=== PATIENT | female | born 1965 | race Caucasian/White ===

== ENCOUNTER 2017-08-23 04:17 | Inpatient (IN) | payer MEDICAID ==
[2017-08-23] MEDS ORDERED: NS 1,000 ML IV ONE ×4 (04:22→06:56)
[2017-08-23] MEDS ORDERED: ASPIRIN 81 MG CHEWABLE TAB PO ONE (04:22)
[2017-08-23] MEDS ORDERED: LORazepam 2 MG/ML INJ IVP ONE ×2 (04:23→05:39)
--- NOTE | 2017-08-23 04:25 | EDPHY ---
H & P HPI/ROS: HPI CHIEF COMPLAINT: Chest pain, cocaine use HISTORY OF PRESENT ILLNESS: This patient 52-year-old female she presents emergency room after doing cocaine around 7:00 p.m. last night. Around 11:00 p.m. she developed pressure and pain in her chest. Associated shortness of breath. She states that she has a long history of cocaine use and previous cocaine induced MIs. She had 3 MIs. No stents. She is followed by Dr. Stevens. She presents to the emergency room after having ongoing chest pressure. It is now 430 in the morning she continue have shortness of breath and chest pressure. She denies hemoptysis. 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 Occasionally smokes tobacco occasional cocaine. Family History: Noncontributory ROS REVIEW OF SYSTEMS: A comprehensive 10 point review of systems is otherwise negative aside from elements mentioned in the history of present illness. Exam Constitutional appears well nontoxic,, somewhat anxious, triage nursing summary reviewed, vital signs reviewed, awake/alert. Eyes normal conjunctivae and sclera, EOMI, PERRLA. HENT normal inspection, atraumatic, moist mucus membranes, no epistaxis, neck supple/ no meningismus, no raccoon eyes. Respiratory clear to auscultation bilaterally, normal breath sounds, no respiratory distress, no wheezing. Cardiovascular tachycardic , regular rhythm, no murmur, no edema, distal pulses normal. Gastrointestinal soft, non-tender, no rebound, no guarding, normal bowel sounds, no distension, no pulsatile mass. Genitourinary no CVA tenderness. Musculoskeletal no midline vertebral tenderness, full range of motion, no calf swelling, no tenderness of extremities, no meningismus, good pulses, neurovascularly intact. Skin pink, warm, & dry, no rash, skin atraumatic. Neurologic awake, alert and oriented x 3, AAOx3, moves all 4 extremities equally, motor intact, sensory intact, CN II-XII intact, normal cerebellar, normal vision, normal speech. Psychiatric normal mood/affect. Heme/Lymph/Immune no lymphadenopathy. Differential diagnosis includes but is not limited to: Cocaine induced acute coronary syndrome, vaso spasm, cocaine induced cardiomyopathy, cocaine induced lung disease, crack cocaine, pulmonary hemorrhage, ACS, atypical chest pain, pneumothorax, pneumonia, pulmonary embolism, aortic dissection, congestive heart failure, tumor, musculoskeletal pain, esophageal pain, GERD, peptic ulcer disease, pancreatitis Medical Decision Making: Plan for this patient full youth nutritional monitor, IV establishment IV Ativan, full-dose aspirin, EKG, chest x-ray. Re-evaluate. IV fluid bolus. Rule out acute coronary syndrome with cocaine. Re-evaluation: EKG interpretation by me on record in [facility] system. Impression time of EKG 4:40 a.m., this is sinus tachycardia rate of 113 PVCs present. Left axis deviation present. Q-waves to the anterior leads V1 V2 V3 slight upsloping ST depression VB for V5 6. Slight ST depression lead 2. This is similar to previous EKG dated 08/25/2015. 0553: Patient noted be tachycardic feeling better after IV Ativan. Also blood work reviewed shows a very high white count. I did review her chest x-ray one view she has an infiltrate in the right lower lobe consistent with most likely a pneumonia. It is possible that this is crack cocaine lung disease. Crack lung additionally it is possible this is pulmonary hemorrhage. However given that it is an isolated right lower lobe most likely pneumonia given white count. She does endorse a cough. She does smoke her intermittently. Some productive sputum. No fever. Differential to consider is right lower lobe pneumonia, pulmonary hemorrhage from cocaine, crack lung, asymmetrical pulmonary edema given her white count will start Rocephin and Zithromax his community-acquired pneumonia. Blood cultures will be pulled. Leukocytosis noted. Additionally patient be admitted to the hospital for chest pain in the setting of an abnormal EKG in the setting of cocaine use. Cocaine induced chest pain. Awaiting troponin 0659: I did review this patient's recent discharge summary she had cocaine induced cardiomyopathy with an ejection fraction of 10%. It did increase to 30% . At this time I did go re-evaluate the patient currently her blood pressure is 81 /53. Heart rate 96. Pulse ox 95% room air. She is feeling better after Ativan. She did receive full-dose aspirin. Her troponin is still pending as a hemolyzed. CK and CK-MB noted. BNP noted. EKG repeat EKG: This EKG time 7:02 a.m., this is sinus rhythm rate of 91 Q- waves noted through the anterior leads. Slight ST depression to [address] elevation appreciated. 0734AM: This patient was noted to have decreasing blood pressure throughout her emergency room stay she is now 60/40. She has been moved to ER room 1 for central line placement it will be done under ultrasound guidance right IJ for vasopressor support. 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 Danny Arvizu who recommends dopamine vasopressor and ICU admission. She did have repeat EKG does not indicate an ST elevation [place]. But however most likely she is having cocaine induced cardiomyopathy cardiogenic shock from cocaine use. Troponin elevated. She is having now some chest pressure. Plan will be for resuscitation central line start vasopressor dopamine admit to ICU. Will update the hospitalist service. Critical Care: Total Critical Care Time Spent Managing this Patient: 65Minutes. This time was spent Exclusively with this patient. This Care was exclusive of procedures. The Organ System/life at risk was cardiac This Patient was in Critical Condition because cardiogenic shock 0749AM: The patient be admitted to the ICU on pressor dopamine. I did place a right IJ central line triple-lumen catheter under ultrasound guidance. Post chest x-ray was used to confirm line placement. No pneumothorax Procedure: Central line placement. Indication: Hypotension, cardiogenic shock Verbal informed consent was obtained, with the risks explained to include but not be limited to bleeding, infection, and collapsed lung. A timeout was observed and patients identity and correct procedure location confirmed. Full maximal sterile barrier technique was uses including cap, gown, sterile gloves, large sheet, hand washing and chlorhexidine prep. The area anesthetized with 1 % lidocaine. The right IJ under ultrasound guidance was punctured with a 19 gauge finder needle, then a triple-lumen catheter was placed using standard Seldinger technique. There were no complications. Blood return low pressure, dark blood. Patient tolerated procedure well. CXR results: No pneumothorax. Good line placement. X-ray was interpreted by myself. The procedure was performed by myself. 0750AM: I have updated the hospitalist about this patient's condition. Patient patient is in critical condition with severe hypotension from cardiogenic shock most likely due to cocaine cocaine induced cardiomyopathy. ED x-ray chest one view the chest x-ray that is time 855 p.m. shows cardiomegaly the right IJ central line is in appropriate position not too deep. Scoliosis present. And pulmonary edema is present throughout her lungs. No pneumothorax. Will hold off on IV fluids at this time. Patient be started on dopamine. Dr. Danny Arvizu with Cardiology to see and evaluate. Also patient be admitted to the ICU. 0807: Patient on dopamine at this time. Heart rate 119. Blood pressure 76/58. I did update the hospitalist service about this patient's condition. Patient go to the ICU. Cardiology consult. Echo pending. Source: Patient, EMS - Medical/Surgical History Hx Asthma: No Hx Chronic Respiratory Disease: No Hx Diabetes: No Hx Cardiac Disease: Yes Hx Renal Disease: No Hx Cirrhosis: No Hx Alcoholism: Yes Hx HIV/AIDS: No Hx Splenectomy or Spleen Trauma: No Other PMH: MIx2 secondary to cocaine use,angioplasty,ETOH, Tobacco use. - Social History Smoking Status: Current every day smoker Constitutional: Initial Vital Signs O2 Sat (%) 98 08/23/17 04:22 O2 Delivery Mode Nasal Cannula O2 (L/minute) 2 Allergies/Adverse Reactions: Opioids - Morphine Analogues Allergy (Verified 08/23/17 04:30) Home Medications: Medication Instructions Recorded Aspirin [Aspirin 81mg (*)] 81 mg PO DAILY #30 tab 08/30/15 Lisinopril [Zestril 5 mg (*)] 5 mg PO DAILY 08/23/17 Medical Decision Making - Data Points Laboratory Results: Laboratory Results 08/23/17 04:25 08/23/17 06:45 08/23/17 04:25 Troponin I Cancelled Procalcitonin 0.48 ng/mL H ng/mL (0.02-0.10) Medications Given: Acetaminophen (Tylenol) 650 mg PO Q4HRS PRN PRN Reason: Pain, Mild/Fever, Can Take PO Stop: 02/19/18 08:51 Last Admin: 08/23/17 20:10 Dose: 650 mg Sodium Chloride (Ns) 1,000 mls @ 150 mls/hr IV CONT FLY Stop: 02/19/18 12:59 Last Admin: 08/23/17 13:00 Dose: 1,000 mls Lorazepam (Ativan Injection) 0.5 - 1 mg IVP Q8HRS PRN PRN Reason: Anxiety, Unable to Take PO Stop: 02/19/18 08:51 Last Admin: 08/23/17 17:57 Dose: 0.5 mg Discontinued Medications Aspirin (Aspirin) 324 mg PO EDNOW ONE Stop: 08/23/17 04:23 Last Admin: 08/23/17 04:37 Dose: Not Given Fentanyl (Sublimaze) 25 mcg IVP ONCE ONE Stop: 08/23/17 08:11 Last Admin: 08/23/17 08:16 Dose: 25 mcg Sodium Chloride (Ns) 1,000 mls @ 0 mls/hr IV EDNOW ONE; Wide Open PRN Reason: Protocol Stop: 08/23/17 04:23 Last Admin: 08/23/17 04:35 Dose: 1,000 mls Azithromycin 500 mg/ Dextrose 255 mls @ 255 mls/hr IV ONCE ONE PRN Reason: Protocol Stop: 08/23/17 06:51 Last Admin: 08/23/17 06:42 Dose: 255 mls Ceftriaxone Sodium/Dextrose (Rocephin 1 Gm (Premix)) 50 mls @ 100 mls/hr IV EDNOW ONE PRN Reason: Protocol Stop: 08/23/17 06:21 Last Admin: 08/23/17 06:39 Dose: 50 mls Sodium Chloride (Ns) 1,000 mls @ 0 mls/hr IV ONCE ONE PRN Reason: Wide Open Stop: 08/23/17 05:56 Last Admin: 08/23/17 05:58 Dose: 1,000 mls Sodium Chloride (Ns) 1,000 mls @ 3,000 mls/hr IV ONCE ONE Stop: 08/23/17 07:10 Last Admin: 08/23/17 06:59 Dose: 1,000 mls Sodium Chloride (Ns) 1,000 mls @ 0 mls/hr IV ONCE ONE PRN Reason: Wide Open Stop: 08/23/17 06:57 Last Admin: 08/23/17 08:04 Dose: Not Given Dopamine HCl/Dextrose (Dopamine 1600 Mcg/Ml (Premix)) 250 mls @ 0 mls/hr IV EDNOW ONE; Titrate PRN Reason: Protocol Stop: 08/23/17 07:34 Last Admin: 08/23/17 07:55 Dose: 250 mls Heparin Sodium (Porcine) (Heparin 50 Units/Ml (Premix)) 500 mls @ 0 mls/hr IV EDNOW ONE PRN Reason: As Directed Stop: 08/23/17 07:34 Last Admin: 08/23/17 07:53 Dose: 500 mls Lorazepam (Ativan Injection) 1 mg IVP EDNOW ONE Stop: 08/23/17 04:24 Last Admin: 08/23/17 04:36 Dose: 1 mg Lorazepam (Ativan Injection) 1 mg IVP EDNOW ONE Stop: 08/23/17 05:40 Last Admin: 08/23/17 05:59 Dose: 1 mg Ondansetron HCl (Zofran) 4 mg IVP EDNOW ONE Stop: 08/23/17 07:06 Last Admin: 08/23/17 07:05 Dose: 4 mg Departure - Departure Disposition: [facility] Inpatient Acute Clinical Impression: Cocaine abuse, Tachycardia, Cardiogenic shock, Elevated troponin Pneumonia Qualifiers: Pneumonia type: due to unspecified organism Laterality: right Lung location: lower lobe of lung Qualified Code(s): J18.1 - Lobar pneumonia, unspecified organism Chest pain Qualifiers: Chest pain type: unspecified Qualified Code(s): R07.9 - Chest pain, unspecified Cardiomyopathy Qualifiers: Cardiomyopathy type: due to drug Qualified Code(s): I42.7 - Cardiomyopathy due to drug and external agent Condition: Fair
[2017-08-23 04:44] LABS: % IMMATURE GRANULYOCYTES 0.6 % (0.0-1.1); ABSOLUTE IMMATURE GRANULOCYTES 0.15 10^3/uL (0.00-0.10); ADD DIFF? NO; ADD MORPH? NO; ADD SCAN? NO; ATYPICAL LYMPHOCYTE FLAG 0 (0-99); FRAGMENT RBC FLAG 0 (0-99); HEMATOCRIT 47.2 % (38.0-47.0); HEMOGLOBIN 15.9 g/dL (12.6-16.3); LEFT SHIFT FLG 0 (0-99); LIPEMIA HEMOLYSIS FLAG 80 (0-99); MEAN CELL HEMOGLOBIN 31.9 pg (27.9-34.1); MEAN CELL HEMOGLOBIN CONCENTR. 33.7 g/dL (32.4-36.7); MEAN CELL VOLUME 94.8 fL (81.5-99.8); MEAN PLATELET VOLUME 11.1 fL (8.7-11.7); PLATELET CLUMPS FLAG 10 (0-99); PLATELET COUNT 385 10^3/uL (150-400); RED BLOOD CELL COUNT 4.98 10^6/uL (4.18-5.33); RED CELL DISTRIBUTION WIDTH 12.5 % (11.5-15.2)
--- NOTE | 2017-08-23 04:50 | CPEKG ---
Heart Rate: 113 RR Interval: 531 P-R Interval: 160 QRSD Interval: 92 QT Interval: 364 QTC Interval: 500 P [place]: 62 QRS [place]: -39 T Wave [place]: 6 EKG Severity - ABNORMAL ECG - EKG Impression: SINUS TACHYCARDIA EKG Impression: MULTIPLE VENTRICULAR PREMATURE COMPLEXES EKG Impression: PROBABLE LEFT ATRIAL ABNORMALITY EKG Impression: LEFT AXIS DEVIATION EKG Impression: CONSIDER ANTEROSEPTAL INFARCT EKG Impression: BORDERLINE PROLONGED QT INTERVAL Electronically Signed By: Sameer Schwartz 23-Aug-2017 08:01:59
[2017-08-23] MEDS ORDERED: AZITHROMYCIN IV 500 MG in D5W 250 ML IV ONE (05:52)
[2017-08-23 06:29] LABS: ALANINE AMINOTRANSFERASE 30 IU/L (9-52); ALBUMIN 3.8 g/dL (3.5-5.0); ALKALINE PHOSPHATASE 47 IU/L (38-126); ANION GAP 12 mEq/L (8-16); ASPARTATE AMINOTRANSFERASE 22 IU/L (14-46); BILIRUBIN,TOTAL 1.1 mg/dL (0.1-1.4); BILIRUBIN-CONJUGATED 0.2 mg/dL (0.0-0.5); BILIRUBIN-UNCONJUGATED 0.9 mg/dL (0.0-1.1); CALCIUM 8.6 mg/dL (8.5-10.4); CARBON DIOXIDE 15 mEq/l (22-31); CHLORIDE 111 mEq/L (97-110); CREATININE 0.8 mg/dL (0.6-1.0); GLOMERULAR FILTRATION RATE > 60; GLUCOSE 109 mg/dL (70-100); MAGNESIUM 1.6 mg/dL (1.6-2.3); SODIUM 138 mEq/L (134-144); TOTAL PROTEIN 6.2 g/dL (6.3-8.2)
[2017-08-23 06:44] LABS: CK-MB INTERPRETATION POSITIVE (NEGATIVE)
[2017-08-23] MEDS ORDERED: ONDANSETRON 4 MG/2 ML VIAL ONE (07:02)
--- NOTE | 2017-08-23 07:04 | CPEKG ---
Heart Rate: 91 RR Interval: 659 P-R Interval: 172 QRSD Interval: 80 QT Interval: 428 QTC Interval: 527 P [place]: 78 QRS [place]: 99 T Wave [place]: 7 EKG Severity - ABNORMAL ECG - EKG Impression: SINUS RHYTHM EKG Impression: PROBABLE LEFT ATRIAL ABNORMALITY EKG Impression: BORDERLINE RIGHT AXIS DEVIATION EKG Impression: CONSIDER ANTEROSEPTAL INFARCT EKG Impression: PROLONGED QT INTERVAL Electronically Signed By: Sameer Schwartz 23-Aug-2017 08:01:59
[2017-08-23] MEDS ORDERED: ONDANSETRON 4 MG/2 ML VIAL IVP ONE (07:05)
[2017-08-23 07:07] LABS: ALANINE AMINOTRANSFERASE 29 IU/L (9-52); ALBUMIN 3.5 g/dL (3.5-5.0); ALKALINE PHOSPHATASE 42 IU/L (38-126); ANION GAP 10 mEq/L (8-16); ASPARTATE AMINOTRANSFERASE 23 IU/L (14-46); CALCIUM 8.1 mg/dL (8.5-10.4); CARBON DIOXIDE 16 mEq/l (22-31); CHLORIDE 112 mEq/L (97-110); CREATININE 0.8 mg/dL (0.6-1.0); GLOMERULAR FILTRATION RATE > 60; GLUCOSE 111 mg/dL (70-100); SODIUM 138 mEq/L (134-144)
[2017-08-23] MEDS ORDERED: HEPARIN/DEXTROSE 500 ML IV ONE (07:33)
[2017-08-23] MEDS ORDERED: DOPamine/DEXTROSE/250 ML BAG IV ONE (07:33)
[2017-08-23] MEDS ORDERED: HEPARIN 10,000 UNIT/10 ML MDV ONE (07:35)
[2017-08-23] MEDS ORDERED: fentaNYL 100 MCG/2 ML INJ IVP ONE (08:10)
[2017-08-23] MEDS ORDERED: ONDANSETRON DISINTEGRATING 4 MG TAB PO PRN (08:52)
[2017-08-23] MEDS ORDERED: ONDANSETRON 4 MG/2 ML VIAL IVP PRN (08:52)
[2017-08-23] MEDS ORDERED: HYDROmorphONE/DILAUDID 1 MG/ML INJ IVP PRN (08:52)
[2017-08-23 08:53] LABS: COLOR YELLOW; LEUKOCYTE ESTERASE,URINE NEGATIVE (NEGATIVE); NITRITE,URINE NEGATIVE (NEGATIVE)
[2017-08-23 08:58] LABS: MUCUS TRACE /lpf (NONE-1+)
[2017-08-23 09:27] LABS: INR 1.27 (0.83-1.16); PROTIME(PATIENT) 15.9 SEC (12.0-15.0)
[2017-08-23 09:28] LABS: APTT 29.7 SEC (23.0-38.0)
--- NOTE | 2017-08-23 10:02 | GHP ---
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 She is followed by Dr. Ruby _, last saw him 4 months ago. It sounds like has not been of late taking her heart failure regimen o f beta alex, JORGE inhibitor and aspirin. She has been using cocaine with some regularity. I did n ot press her on exactly how much but she was using it last night. She presented this morning with ch est pain. Found to be hypotensive with systolic blood pressure as low as 60, now greater than 100 on dopamine. She notes a dry cough. No sputum, no fever, chills. No abdominal pain. No urgency, renae quency, dysuria. She has some chronic diarrhea secondary to diet that is unchanged. She does contin ue to smoke cigarettes. She does not drink alcohol. In the emergency department, she received IV fluids, dopamine, central line access and she reports fe eling much better in here. When I speak with her, she is alert and mentating. REVIEW OF SYSTEMS: Complete 10-point review of systems conducted and negative except as noted in the HPI. PAST MEDICAL HISTORY: 1. Cocaine-induced cardiomyopathy with [place] x3. She had a coronary angiogram in 2014 which showed nor mal coronary arteries. Her EF is reported to be 10%. Bedside estimate by the automatic equipment technician was mo re in the 30s. 2. History of intra-aortic balloon pump for cardiogenic shock. 3. Polysubstance abuse. ALLERGIES: Morphine and opioid analogs. HOME MEDICATIONS: Aspirin, bisoprolol, lisinopril, nicotine. SOCIAL HISTORY: Intermittent cocaine and tobacco use. She did have 5-1/2 months of sobriety. FAMILY HISTORY: Reviewed and unremarkable. PHYSICAL EXAMINATION: PRESENTING VITALS: Temp 36.7, blood pressure 118/61, pulse 55, breathing 17 t imes a minute, 91% on room air. GENERAL: No acute distress, lying flat. HEENT: Sclerae anicteric. Oropharynx is clear. Mucous membranes are moist. NECK: Supple. I cannot assess JVD, it is dark in the room, she is getting an echo while I examined her. LUNGS: Clear to auscultation anterolatera lly. HEART: S1, S2. Tachycardic, hyperdynamic. She is on dobutamine. ABDOMEN: Soft, nontender, nondistended. LOWER EXTREMITIES: Without edema. Calves nontender. SKIN: Without rash. NEUROLOGI C: Grossly nonfocal. LABS: White count is 24.5, with a left shift, hematocrit is 47, platelets are 385,000. Venous lacta te is elevated at 2.2. Sodium is 138, potassium 5, chloride 111, bicarb 15. Anion gap is normal. B UN is 20, creatinine is 0.8, mag is 1.6. Total bilirubin is 1.1. LFTs are normal. CK is 180. Trop onin is 2. BNP is 2430 which is high for her, in September of 2015, she was 553. Lipase is normal. UA is unremarkable. Tox screen is negative for cocaine, benzos and marijuana. EKG performed at 4:40 in the morning shows sinus tach at about 115 with left axis deviation. There i s a nonspecific interventricular conduction delay. There are some PVCs. There are no ST elevations. There is some ST-segment depression in V5, V6. Repeat EKG done a couple hours later shows sinus at 91 with left axis deviation. There are lateral prominent T-waves. Chest x-ray interpreted by me sh ows significant scoliosis. There appears to be some upper zone vascular redistribution. There does not appear to be an infiltrate. There is a right IJ in what appears to be the right atrium leads ove rlying the chest. I have discussed the case with Dr. Brian Schwartz as well as Dr. Juan Miguel Schwartz. ASSESSMENT AND PLAN: A 52-year-old female with a history of cocaine cardiomyopathy, presented with c ocaine use, chest pain, positive troponin and hypotension. 1. Hypotension. This is certainly suggestive of cardiogenic shock. Her leukocytosis is noted. She has responded well to dopamine. Her BNP is elevated for her, even though it is a relatively modest value for someone with her burden of cardiac disease. 2. When she arrives to the ICU, we will which will help us understand her hemodynamics a bit better. Notably, she is not in renal failure, she does not have cool, clamped extremities which would be suggestive of cardiac failure. Will follow. 3. Question sepsis. The patient has a leukocytosis, hypotension and tachycardia, although the tachy cardia was initiated after starting pressors. Chest x-ray does not have a clear pneumonia, although the radiologist has interpreted this as a right lower lobe pneumonia. I think it is reasonable to tr eat her for community-acquired pneumonia. Her urinalysis is unremarkable. Her belly is soft. There are no skin lesions. I will add a procalcitonin to further elucidate this. 4. Shock. Certainly it is important to differentiate the difference between cardiogenic shock and s epsis in this patient as sepsis would be treated with volume resuscitation, antibiotics, etc., and ca rdiogenic shock would be treated with diuresis. 5. Cocaine use. There are many strong indicators that this patient needs to stop using cocaine. 6. Right lower lobe pneumonia. Ceftriaxone and azithromycin initiated, we will continue those. She does coverage. 7. Chronic systolic heart failure. Again, sorting out the patient's hemodynamics are important. Fo r the time being, we will go ahead and follow up on her hemodynamics and proceed from there. 8. Prophylaxis. She is currently on a heparin drip for uncertain reasons. I suspect she would do w ell with heparin prophylaxis. 9. Disposition: Inpatient status. /[id number]/MODL
--- NOTE | 2017-08-23 10:41 | ECHO ---
[email or web address] [address] [address] Main: [phone] Fax: [email or web address] Echocardiogram Name: YASMEEN HART MR#: [id number] Study Date: 08/23/2017 Study Time: 08:34 AM Date of : 1965 Age: 52 year(s) Height: 165.1 cm (65 in.) Weight: 62.6 kg (138 lb.) BSA: 1.69 m2 Gender: Female Examination: Echo Indication: Cardiogenic shock Image Quality: Adequate Contrast: Requested by: Sameer Stevenson BP: 111 mmHg/58 mmHg Heart Rate: Rhythm: Sinus tachycardia Indication: Cardiogenic shock Procedure Staff Recreational Director: Marilyn Avendaño Reading Physician: Marshall Choi Requesting Provider: Conclusions: Moderately dilated left ventricle. Moderately reduced systolic LV function. The ejection fraction is estimated to be 30-35 %. Mild mitral valve regurgitation is present. Measurements: Chambers Valvular Assessment AV/MV Valvular Assessment TV/PV Normal Normal Normal Name Value Range Name Value Range Name Value Range Ao Salud (MM): 3.0 cm (2.2 cm-3.7 AV Vmax: 1.16 m/s (1 m/s-1.7 TR Vmax: 2.70 mm/s ( - ) cm) m/s) TR PGmax: 29 mmHg ( - ) IVSd (2D): 0.8 cm (0.6 cm-1.1 AV maxP mmHg ( - ) syst. PAP: 34 mmHg ( - ) cm) LVOT Vmax: 1.03 m/s (0.7 m/s-1.1 PV Vmax: 0.63 m/s (0.6 m/s-0.9 LVDd (2D): 5.2 cm (3.9 cm-5.3 m/s) m/s) cm) PV PGmax: 2 mmHg ( - ) LVDs (2D): 4.5 cm (2.1 cm-4 cm) LVPWd (2D): 0.9 cm ( - ) LVEF (BP): 33 % (>=55 %) EF Range: 30-35 % RVDd(2D): 3.9 cm (1.9 cm-3.8 cmmm) Continued Measurements: Chambers Valvular Assessment TV/PV Name Value Name Value LADs Lon.5 cm CVP (est.): 5 mmHg LA Area: 18.1 cm2 LA Volume: 67 ml Patient: YASMEEN HART Study Date: 08/23/2017 Page 1 of 2 08:34 AM LA Volume Index: 39.6 ml/m2 TAPSE: 1.7 cm Additional Vessels Name Value Ao Ascendin.6 cm Findings: Left Ventricle: Moderately dilated left ventricle. Moderately reduced systolic LV function. The ejection fraction is estimated to be 30-35 %. The basal anteroseptal, basal inferoseptal, basal inferior, mid anteroseptal, mid inferoseptal, mid inferior and apical septal wall segments are akinetic. All remaining scored wall segments are normal. Prominient false tendon noted in the LV apex.. Right Ventricle: Upper normal size right ventricle. Mildly reduced RV function. Left Atrium: The left atrium is mildly dilated. Right Atrium: The right atrium is mildly dilated. Mitral Valve: The mitral valve is normal in appearance. Mild mitral valve regurgitation is present. Prominient mitral papillary muscle noted.. Aortic Valve: The aortic valve is tri-leaflet. Trivial aortic valve regurgitation. Tricuspid Valve: The tricuspid valve is normal in appearance and function. Mild tricuspid regurgitation is present. Borderline elevated pumonary artery pressure. Pulmonic Valve: The pulmonic valve is normal in appearance and function. Mild pulmonic valve regurgitation is noted. Aorta: The aorta is normal. IVC: The IVC is normal sized. Pericardium: No pericardial effusion. (No Signature Object) Wall Motion Scores -1 - Not Scored, 0 - Unknown, 1 - Normal or hyperkinesia, 2 - Hypokinesia, 3 - Akinesia, 4 - Dyskinesia, 5 - Aneurysm Patient: YASMEEN HART Study Date: 08/23/2017 Page 2 of 2 08:34 AM [id number]
--- NOTE | 2017-08-23 12:44 | PDMN ---
Medical Necessity Medical necessity: est los>2mn for hypotension, likely cardiogenic shock, possible sepsis , and PNA; admit to ICU; comorbid cocaine induced cardiomyopathy, [place] X 3, chronic systolic heart failure; per H&P and order
[2017-08-23] MEDS: NS 1,000 ML IV SCH (13:00)
--- NOTE | 2017-08-23 14:24 | GCON ---
[f rep st] CONSULTATION CARDIOLOGY CONSULTATION CHIEF COMPLAINT: Chest pain x1 day. HPI: This is a 52-year-old female with history of nonischemic cardiomyopathy, who has a longstanding history of recurrent ethanol and cocaine abuse. The patient has been following up with Dr. Stevens he re in our clinic and actually had been doing quite well; however, the patient indicates that in the l ast 3 months, she has started using drugs again, especially cocaine use, and apparently used cocaine last night. This resulted in acute onset of chest pain, and the patient came to the emergency room, where evaluation showed ECG of normal sinus rhythm with nonspecific T wave changes. Troponins were e levated; however, patient's pain was rectified with administration of nitroglycerin, aspirin and Ativ an. Currently, the patient is resting quietly and denies any chest pain; however, her systolic blood pressure was low in the 60s to 70s on admission, and she has been treated with IV dopamine for the l ast 12 hours. Currently, the dopamine drip is at 8 mcg, and her blood pressure is 100 systolic. Aga in, she is resting quietly, denies any chest pain at this point in time. Her echocardiogram from s morning showed an ejection fraction of approximately 35% with global wall motion abnormality, with no significant valvular dysfunction. PAST MEDICAL HISTORY: Significant for cardiomyopathy. SOCIAL HISTORY: Significant for ethanol and cocaine drug use. MEDICATIONS: The patient indicates that she was on an JORGE inhibitor as well as asthma medications, b ut it is not clear if she has been taking any medications over the last few months. REVIEW OF SYSTEMS: The patient currently denies issue. No headache. No palpitations. No chest yuli n. No abdominal pain. No lower extremity pain. PHYSICAL EXAM: VITAL SIGNS: The patient is currently afebrile at 96, blood pressure is currently 10 0/70 with a heart rate of 88, respirations 12, saturation 95% on 2 liters nasal cannula. HEENT: Pup ils equal, round, reactive to light and accommodation. Extraocular muscles intact. CARDIOVASCULAR: Regular rate and rhythm. S1, S2. LUNGS: Clear to auscultation bilaterally. ABDOMEN: Soft, nonte nder. No guarding. EXTREMITIES: No clubbing, no cyanosis, no edema. NEUROLOGIC: Alert and orient ed x3. LABORATORY: Values currently show a sodium 138, potassium 5, chloride 111, CO2 15, BUN 20, creatinin e 0.8. Troponin of 2.0 with A CK-MB of 8.1. NT-BNP is 2400. Echocardiogram shows EF of 35% with global hypokinesis. ASSESSMENT AND PLAN: Chest pain. At this time, the patient's chest pain was most likely induced by her underlying cocaine use. I have spoken at length with the patient about her drug use, and she ind icates her willingness to go through a rehabilitation process. At this point, would suggest to wean her dopamine down in the intensive care unit setting and to be careful with IV fluid hydration given her reduced ejection fraction. Once the dopamine has been completely withdrawn, we could restart her angiotensin-converting enzyme inhibitor within 6 hours and her beta alex within 24 hours. The be ta laex will be slightly delayed secondary to her underlying cocaine use. Given the improvement c linically from a pain standpoint and the lack of dynamic electrocardiogram changes, we will continue with conservative medical therapy at this time. /[id number]/MODL
--- NOTE | 2017-08-23 15:45 | GCON ---
[f rep st] CONSULTATION PULMONARY/CRITICAL CARE CONSULTATION DATE OF CONSULTATION: 08/23/2017 REFERRING PHYSICIAN: Ciro Bahena MD REASON FOR REFERRAL: Evaluation and management of hypotension. HISTORY: The patient is a 52-year-old woman with a history of nonischemic cardiomyopathy and several myocardial infarctions attributed to cocaine use. She has been seen by Dr. Stevens, and had been doing well, with an ejection fraction that had increased from the low of 10% up to 55% several months ago. At her visit approximately [address] Stevens had told her that she could stop her beta alex. She apparently stopped that, but also stopped her lisinopril as well at the same time. About 3 months ago she started doing drugs again, including cocaine. She used cocaine last night at about 7 p.m. and had the acute onset of chest pain and shortness of breath at around 11 p.m. She presented to the emergency department with some nonspecific ST changes. She was given nitroglycerin, aspirin, and Ativan, and her chest pain had resolved. However, she was hypotensive with a systolic blood pressure in the 60s to 70s, requiring dopamine in order to maintain blood pressure. She denies dyspnea currently as well. She has had no nausea or vomiting. She does report some neck discomfort at the site of her IJ catheter. PAST MEDICAL HISTORY: 1. Cocaine-induced cardiomyopathy. 2. Polysubstance abuse. She was apparently not using cocaine for a while, but resumed a few months ago. MEDICATIONS: Aspirin, nicotine. ALLERGIES: Morphine. SOCIAL HISTORY: Intermittent cocaine and tobacco use. She has been smoking some marijuana as well. FAMILY HISTORY: Unremarkable. REVIEW OF SYSTEMS: 10-point review of systems adds nothing to the History of Present Illness. PHYSICAL EXAMINATION: GENERAL: The patient is awake, alert, and in no acute distress. VITAL SIGNS: Her blood pressure is 96/62 on dopamine at 8 mcg/kg/ min. Heart rate is 81. Oxygen saturations are 98% on 2 L. CVP is 14. HEENT: Normocephalic and atraumatic. No icterus. NECK: No JVD. Trachea is midline. CHEST: Clear to auscultation. CARDIAC: Regular rate and rhythm without murmur. ABDOMEN: Soft, nontender. Bowel sounds are present. EXTREMITIES: No clubbing, cyanosis, or edema. NEURO: Alert, oriented. No focal motor or sensory deficits. LABORATORY DATA: A chemistry group is remarkable only for a carbon dioxide level that is low at 16. A CK is 180, with 8% MB fraction. Troponin is 2.07. BNP is 2430. Procalcitonin is 0.48. Lactate is 1.1, down from 2.2 at admission. White blood count is 24.6 with a hemoglobin of 15.9. A chest x-ray shows a possible right lower lobe pneumonia and an appropriately placed right central line. Images reviewed. An echocardiogram shows an ejection fraction of 35%, global hypokinesis. Pulmonary artery systolic pressure is 34 mmHg. ASSESSMENT: 1. Hypotension. This is likely due to acute left ventricular systolic dysfunction related to cocaine abuse. I ordered an ICON monitor, which demonstrated fluid responsiveness. We have been able to start to decrease her dopamine rate. 2. Acute cocaine use. The patient is at fairly low risk for withdrawal given her intermittent use of cocaine. 3. History of anxiety. RECOMMENDATIONS: Dopamine will be weaned. If she develops hypotension, an ICON monitor will be rechecked and she will be given fluids if she remains fluid responsive. She will continue to be monitored in the ICU. She has been seen by Cardiology, and no interventions are planned at this point. Heparin can be stopped. /[id number]/MODL MTDD
[2017-08-23] MEDS: LORazepam 2 MG/ML INJ IVP PRN (17:57)
[2017-08-23] MEDS: ACETAMINOPHEN 325 MG TAB PO PRN (20:10)
[2017-08-24] MEDS: NS 1,000 ML IV SCH ×2 (02:14→09:04)
[2017-08-24] MEDS: ACETAMINOPHEN 325 MG TAB PO PRN (02:16)
[2017-08-24 05:45] LABS: % IMMATURE GRANULYOCYTES 0.4 % (0.0-1.1); ABSOLUTE IMMATURE GRANULOCYTES 0.05 10^3/uL (0.00-0.10); ADD DIFF? NO; ADD MORPH? NO; ADD SCAN? NO; ATYPICAL LYMPHOCYTE FLAG 0 (0-99); FRAGMENT RBC FLAG 0 (0-99); HEMATOCRIT 32.3 % (38.0-47.0); LEFT SHIFT FLG 0 (0-99); LIPEMIA HEMOLYSIS FLAG 90 (0-99); MEAN CELL HEMOGLOBIN 32.6 pg (27.9-34.1); MEAN CELL HEMOGLOBIN CONCENTR. 34.1 g/dL (32.4-36.7); MEAN CELL VOLUME 95.8 fL (81.5-99.8); MEAN PLATELET VOLUME 10.8 fL (8.7-11.7); PLATELET CLUMPS FLAG 0 (0-99); PLATELET COUNT 233 10^3/uL (150-400); RED BLOOD CELL COUNT 3.37 10^6/uL (4.18-5.33)
[2017-08-24 06:12] LABS: ANION GAP 7 mEq/L (8-16); CALCIUM 7.5 mg/dL (8.5-10.4); CARBON DIOXIDE 19 mEq/l (22-31); CHLORIDE 114 mEq/L (97-110); CREATININE 0.6 mg/dL (0.6-1.0); GLOMERULAR FILTRATION RATE > 60; GLUCOSE 88 mg/dL (70-100); POTASSIUM 3.4 mEq/L (3.5-5.2); SODIUM 140 mEq/L (134-144)
[2017-08-24] MEDS: AZITHROMYCIN 250 MG TAB PO SCH (08:51)
[2017-08-24] MEDS: cefTRIAXone 1 GM in D5W 50 ML IV SCH (08:51)
[2017-08-24] MEDS: ASPIRIN 81 MG CHEWABLE TAB PO SCH (08:52)
[2017-08-24] MEDS ORDERED: AZITHROMYCIN IV 500 MG in D5W 250 ML IV SCH (09:00)
--- NOTE | 2017-08-24 09:29 | PDCARPN ---
Cardiology Progress Note Assessment/Plan: Assessment/plan: 52 yo F with hx of NICMP related polysubstance abuse admitted with CP, hypotension, elevated WBC. LVEF dropped to 35% (had normalized with medical therapy). Utox positive for cocaine and THC. Troponin positive. Previous cath with no sig CAD. 1. Hypotension: cardiogenic plus possibly septic. On low dose dopa, being weaned. On broad spectrum abx. Once stable off dopa, restart lisinopril. Beta alex therapy would be indicated, but possibly problematic if she continues to use cocaine. This was discussed with her today. Has received significant volume rescusitation and may need lasix. 2. NICMP: per #1. Sees Dr. Stevens outpatient. 3. Polysubstance abuse: it is paramount that she remain abstinent from cocaine. Past ETOH. Also needs to quit cigarettes. 4. Elevated troponins: related to cocaine. 25 minutes spent in chart review and patient contact 08/24/17 09:32 Subjective: Brittany feels slightly SOB when talking. No angina. Has neck pain at right IJ site Reviewed/Discussed With: multidisciplinary team Objective: Vital Signs (8 Hrs) Temp Pulse Resp BP Pulse Ox 08/24/17 09:00 82 16 102/62 98 08/24/17 08:00 82 24 H 107/50 L 100 08/24/17 07:00 82 20 98/54 L 98 08/24/17 06:00 75 15 86/51 L 94 08/24/17 05:00 36.6 C 77 19 96/56 L 93 08/24/17 04:00 80 15 89/51 L 93 08/24/17 03:00 87 19 79/49 L 96 08/24/17 02:00 79 21 H 86/54 L 93 Intake/Output (24 Hrs) 08/23/17 08/24/17 08/25/17 05:59 05:59 05:59 Intake Total 6673.3 Output Total 1881 300 Balance 4792.3 -300 Intake: Oral (ml) 800 IV Intake (ml) 2282 IV Infused (ml) 3591.3 DOPamine/DEXTROSE 250 ml 217.7 @ Titrate IV CONT FLY Rx# :[id number] Heparin/Dextrose 500 ml @ 97.6 As Directed IV EDNOW ONE Rx#:[id number] Ns 1,000 ml @ 150 mls/hr 776 IV CONT FLY Rx#: [id number] Output: Urine (ml) 1881 300 Catheter 1481 300 Other: Weight 64.093 kg anxious RRR no m/r/g Rhonchi at both bases No edema CXR reviewed: peribronchial thickening Result Diagrams: 08/24/17 05:25 08/24/17 05:25 Cardiac Labs: Cardiac Lab Results (72 Hrs) 08/23/17 08/23/17 21:15 15:05 Troponin I 3.870 H 3.990 H EKG: Reviewed: SR, DILCIA, PVC. Subtle inferolateral STD Telemetry: NSR ICD10 Worksheet Patient Problems: Problems Problem Status Onset ROQUE (acute kidney injury) Acute NSTEMI (non-ST elevated myocardial infarction) Acute Cocaine abuse Acute Acute systolic congestive heart failure Acute Pneumonia Acute Tachycardia Acute Chest pain Acute Cardiogenic shock Acute Elevated troponin Acute Cardiomyopathy Acute
--- NOTE | 2017-08-24 09:42 | ASMTCMCOM ---
CM Note CM Note Notes: 52 year old female admitted for chest pain, hypotension, sepsis, RLL PNA. Patient has a hx of cocaine induced cardiomyopathy, polysubstance abuse, MD, EF=10%. CM to follow for discharge needs. Date Signed: 08/24/2017 09:42 AM Electronically Signed By:Deysi Soliz LCSW
[2017-08-24] MEDS ORDERED: PROTOCOL POTASSIUM 1 DOSE MISC PRN (10:48)
[2017-08-24] MEDS ORDERED: PROTOCOL MAGNESIUM 1 DOSE IV PRN (10:48)
[2017-08-24 12:10] LABS: MAGNESIUM 1.7 mg/dL (1.6-2.3); POTASSIUM 3.9 mEq/L (3.5-5.2)
[2017-08-24] MEDS ORDERED: POTASSIUM Cl (KCl) 50 ML IV ONE (13:17)
--- NOTE | 2017-08-24 14:00 | PDINTPN ---
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 EF down to 35% from 55% several months ago. Able to wean off DA this morning. BP acceptable, UO good. CI low at 2.0. BNP increased s/p IVF, now stopped. Cocaine abuse: Tobacco abuse Hypokalemia: Improved with replacement. Plan: Continue to hold IVF, encourage PO. Ambulate. D/C theodore MILLER. If doing well tomorrow can start lisinopril and Tx to PCU. 08/24/17 13:58 08/24/17 14:01 Subjective: Feels better, still some chest discomfort with deep breaths, as well as general myalgias. A bit walk when trying to walk, but did well. Denies dyspnea. Appetite returning. Objective: Vital Signs Temp Pulse Resp BP Pulse Ox 37.0 C 74 23 H 105/66 96 08/24/17 10:00 08/24/17 13:00 08/24/17 13:00 08/24/17 13:00 08/24/17 13:00 Laboratory Results 08/24/17 05:25 08/24/17 11:39 08/23/17 08/24/17 08/25/17 05:59 05:59 05:59 Intake Total 6673.3 Output Total 1881 600 Balance 4792.3 -600 PT 15.9 SEC (12.0-15.0) H 08/23/17 06:45 INR 1.27 (0.83-1.16) H 08/23/17 06:45 Laboratory Tests 08/23/17 08/23/17 08/24/17 15:05 21:15 05:25 Potassium 3.4 L Troponin I 3.990 H 3.870 H NT-Pro-B Natriuret Pep 51012 H Physical Exam - Physical Exam General Appearance: alert, no apparent distress EENT: normal ENT inspection Neck: normal inspection Respiratory: lungs clear, normal breath sounds Cardiac/Chest: regular rate, rhythm, No edema Abdomen: normal bowel sounds, non-tender Skin: normal color, warm/dry Extremities: normal inspection Neuro/Psych: alert, oriented x 3 ICD10 Worksheet Patient Problems: Problems Problem Status Onset Cardiogenic shock Acute Cardiomyopathy Acute Chest pain Acute Cocaine abuse Acute Elevated troponin Acute Pneumonia Acute Tachycardia Acute ROQUE (acute kidney injury) Acute Acute systolic congestive heart failure Acute NSTEMI (non-ST elevated myocardial infarction) Acute
[2017-08-24] MEDS ORDERED: POTASSIUM Cl (KCl) 100 ML IV ONE (14:45)
--- NOTE | 2017-08-24 14:53 | GPN ---
[f rep st] PROCEDURE NOTE DATE OF PROCEDURE: 08/24/2017 PROCEDURE PERFORMED: Flexible fiberoptic bronchoscopy. REASON FOR PROCEDURE: Respiratory failure with retained secretions. DESCRIPTION OF PROCEDURE: The risks and benefits of the procedure were explained to the patient's fa garo, who agreed to proceed. The entire procedure was performed in the intensive care unit with the patient under blood pressure, EKG, and oximetry monitoring. It was my assessment that there was no r isk of airborne infection from the procedure. After an appropriate time-out, the patient was given 5 cc of propofol, and 2 cc of 1% lidocaine was i nstilled into the patient's endotracheal tube. The bronchoscope was advanced through the endotrachea l tube, where I encountered thin mucopurulent secretions in the distal trachea, which were easily suc tioned. I then proceeded to the right airways, where there were scant secretions which were easily s uctioned. I then turned to the left-sided airways, where there was a moderate amount of thin mucopur ulent secretions which were easily suctioned. There was some extrinsic compression of the left lower lobe, but all airways were patent. There were no endobronchial abnormalities. No specimens were se nt. The patient tolerated the procedure well with good saturations throughout. There were no compli cations apparent at the end of the procedure. /[id number]/MODL
--- NOTE | 2017-08-24 15:11 | HOSPPROG ---
Hospitalist Progress Note Assessment/Plan: 52 yo F w NICM 2/2 cocaine use admitted w CP, hypotension and possible CAP CAP: day ceftriaxone azithro 5 day course alternative possibility is inhalation injury hypotension: NICOM demonstrated fluid responsiveness now off pressors NICM: ef had normalized but now 45% had been off JORGE BB had been dc'd 2/2 bradycardia restart lisinopril 08/25 if bp stable cocaine use: counselled cessation proph: [facility] dispo :inpt Subjective: case d/w dr decker. off pressors Objective: Vital Signs Temp Pulse Resp BP Pulse Ox 37.0 C 80 18 113/73 99 08/24/17 10:00 08/24/17 14:00 08/24/17 14:00 08/24/17 14:00 08/24/17 14:00 Laboratory Results 08/24/17 05:25 08/24/17 11:39 08/23/17 08/24/17 08/25/17 05:59 05:59 05:59 Intake Total 6673.3 Output Total 1881 600 Balance 4792.3 -600 PT 15.9 SEC (12.0-15.0) H 08/23/17 06:45 INR 1.27 (0.83-1.16) H 08/23/17 06:45 - Physical Exam Constitutional: no apparent distress, appears nourished Eyes: PERRL, anicteric sclera Ears, Nose, Mouth, Throat: moist mucous membranes, hearing normal Cardiovascular: regular rate and rhythym, no murmur, rub, or gallop Respiratory: no respiratory distress, inspiratory crackles, No no rales or rhonchi, No clear to auscultation Gastrointestinal: normoactive bowel sounds, soft, non-tender abdomen Genitourinary: No jaimes in urethra Skin: warm, normal color Musculoskeletal: full muscle strength ICD10 Worksheet Patient Problems: Problems Problem Status Onset Cardiogenic shock Acute Cardiomyopathy Acute Chest pain Acute Cocaine abuse Acute Elevated troponin Acute Pneumonia Acute Tachycardia Acute ROQUE (acute kidney injury) Acute Acute systolic congestive heart failure Acute NSTEMI (non-ST elevated myocardial infarction) Acute
[2017-08-24 18:09] LABS: POTASSIUM 3.8 mEq/L (3.5-5.2)
[2017-08-24] MEDS: LORazepam 2 MG/ML INJ IVP PRN (20:46)
[2017-08-25 00:46] LABS: POTASSIUM 3.7 mEq/L (3.5-5.2)
[2017-08-25] MEDS ORDERED: POTASSIUM Cl (KCl) 50 ML IV ONE ×2 (01:11→08:26)
[2017-08-25 05:43] LABS: % IMMATURE GRANULYOCYTES 0.5 % (0.0-1.1); ABSOLUTE IMMATURE GRANULOCYTES 0.05 10^3/uL (0.00-0.10); ADD DIFF? NO; ADD MORPH? NO; ADD SCAN? NO; ATYPICAL LYMPHOCYTE FLAG 0 (0-99); FRAGMENT RBC FLAG 0 (0-99); HEMATOCRIT 32.3 % (38.0-47.0); LEFT SHIFT FLG 0 (0-99); LIPEMIA HEMOLYSIS FLAG 90 (0-99); MEAN CELL HEMOGLOBIN 32.6 pg (27.9-34.1); MEAN CELL HEMOGLOBIN CONCENTR. 34.1 g/dL (32.4-36.7); MEAN CELL VOLUME 95.8 fL (81.5-99.8); MEAN PLATELET VOLUME 10.6 fL (8.7-11.7); PLATELET CLUMPS FLAG 0 (0-99); PLATELET COUNT 224 10^3/uL (150-400); RED BLOOD CELL COUNT 3.37 10^6/uL (4.18-5.33)
[2017-08-25 05:53] LABS: ANION GAP 6 mEq/L (8-16); CALCIUM 8.2 mg/dL (8.5-10.4); CARBON DIOXIDE 20 mEq/l (22-31); CHLORIDE 114 mEq/L (97-110); CREATININE 0.6 mg/dL (0.6-1.0); GLOMERULAR FILTRATION RATE > 60; GLUCOSE 83 mg/dL (70-100); MAGNESIUM 1.7 mg/dL (1.6-2.3); POTASSIUM 3.8 mEq/L (3.5-5.2); SODIUM 140 mEq/L (134-144)
[2017-08-25] MEDS: cefTRIAXone 1 GM in D5W 50 ML IV SCH (08:23)
[2017-08-25] MEDS: ASPIRIN 81 MG CHEWABLE TAB PO SCH (08:23)
[2017-08-25] MEDS: AZITHROMYCIN 250 MG TAB PO SCH (08:23)
[2017-08-25] MEDS ORDERED: MAGNESIUM SULF 1 GM/DEXTROSE 100 ML IV ONE (08:26)
--- NOTE | 2017-08-25 08:45 | HOSPPROG ---
Hospitalist Progress Note Assessment/Plan: 52 yo F w NICM 2/2 cocaine use admitted w CP, hypotension and possible CAP CAP: day 3 ceftriaxone, azithro had had 1.5 g azithro, will stop alternative possibility is inhalation injury add prn albuterol hypotension: initially required dopamine, now off pressors Cocaine induced cardiomyopathy: ef was as low as 10%, had normalized, but now 45 %. Had been off meds. -will resume low dose lisinopril and monitor BP closely -may not be a good candidate for BB with risk of ongoing cocaine abuse elevated trop: secondary to cocaine, had clear cors on angiogram 2014 cocaine use: counselled cessation, CM consult requested to review tx resources proph: [facility] dispo :inpt, transfer to PCU Subjective: Pt feels well. Denies CP or SOB. Asks about an inhaler. She has good group of recovery friends, but still friends with her cocaine dealer. Recognizes she needs to let him go. Shows good insight. Objective: Vital Signs Temp Pulse Resp BP Pulse Ox 37.1 C 68 14 96/66 L 93 08/25/17 04:00 08/25/17 06:00 08/25/17 06:00 08/25/17 06:00 08/25/17 02:00 Laboratory Results 08/25/17 05:25 08/25/17 05:25 08/24/17 08/25/17 08/26/17 05:59 05:59 05:59 Intake Total 6673.3 972.4 Output Total 1881 600 Balance 4792.3 372.4 PT 15.9 SEC (12.0-15.0) H 08/23/17 06:45 INR 1.27 (0.83-1.16) H 08/23/17 06:45 - Physical Exam Constitutional: no apparent distress Eyes: PERRL Ears, Nose, Mouth, Throat: moist mucous membranes Cardiovascular: regular rate and rhythym, no murmur, rub, or gallop Respiratory: no respiratory distress, expiratory wheeze Gastrointestinal: normoactive bowel sounds, soft, non-tender abdomen Skin: warm Musculoskeletal: full muscle strength Neurologic: AAOx3 Psychiatric: interacting appropriately ICD10 Worksheet Patient Problems: Problems Problem Status Onset Cardiogenic shock Acute Cardiomyopathy Acute Chest pain Acute Cocaine abuse Acute Elevated troponin Acute Pneumonia Acute Tachycardia Acute ROQUE (acute kidney injury) Acute Acute systolic congestive heart failure Acute NSTEMI (non-ST elevated myocardial infarction) Acute
[2017-08-25] MEDS ORDERED: ALBUTEROL 60 PUFFS/8 GM MDI IH PRN (09:07)
[2017-08-25] MEDS ORDERED: ALBUTEROL 200 PUFFS/18 GM MDI IH PRN (09:13)
[2017-08-25] MEDS ORDERED: LISINOPRIL 2.5 MG TAB PO SCH (09:15)
[2017-08-25] MEDS ORDERED: PROTOCOL POTASSIUM 1 DOSE MISC PRN (09:27)
[2017-08-25] MEDS ORDERED: POTASSIUM CL 10 MEQ TAB PO ONE (09:35)
[2017-08-25] MEDS: LISINOPRIL 5 MG TAB PO SCH (09:43)
[2017-08-25] MEDS ORDERED: FUROSEMIDE 20 MG/2 ML VIAL IVP ONE (10:06)
--- NOTE | 2017-08-25 10:06 | PDCARPN ---
Cardiology Progress Note Chief Complaint: cp/ NICM Assessment/Plan: Assessment: 52 yo F with PMH polysubstance abuse, cocaine-related MIs 2002, 2009, CHF with EF as low 10% and clean cors on C in 2014, NICM related polysubstance abuse p/ w CP, hypotension, elevated WBC. Admitted on 08/23/17. Had abstained from cocaine for a few months .With abstinence, EF improved to 65% in outpatient setting (07/01). 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 Echo showed LVEF dropped to 35%, Utox positive for cocaine and THC, Troponin positive, and RLL pna on CXR. #. Hypotension: cardiogenic plus possibly septic. Dopa now weaned and restearted on Lisinopril Has been on Coreg in past and stopped in June due to exercise intolerance and normalization of EF Will hold BB for now #. NICM with EF 35% on this admission: mildly hypervolemic with bibasilar crackles noting dyspnea at rest c/w FC IV symptoms will give one time dose of Lasix IV now pBNP 8990 #. Polysubstance abuse: working with CM on cessation strategies #. Elevated troponins: likely related to cocaine with peak Tn 3.99 #. possible pna: per hospital medicine Plan: Give dose of IV lasix now Reviewed pt's H&P, consult, labs, CXR. ECG personally interpreted shows ST with PVCs, QTc 500. 08/25/17 10:22 Objective: Vital Signs (8 Hrs) Temp Pulse Resp BP Pulse Ox 08/25/17 08:00 97.7 F 77 18 110/70 97 08/25/17 06:00 68 14 96/66 L 08/25/17 04:00 98.7 F 72 16 104/76 08/25/17 02:00 77 14 94/59 L 93 Intake/Output (24 Hrs) 08/24/17 08/25/17 08/26/17 05:59 05:59 05:59 Intake Total 6673.3 972.4 Output Total 1881 600 Balance 4792.3 372.4 Intake: Oral (ml) 800 900 IV Intake (ml) 2282 IV Infused (ml) 3591.3 72.4 DOPamine/DEXTROSE 250 ml 217.7 22.4 @ Titrate IV CONT FLY Rx# :[id number] Heparin/Dextrose 500 ml @ 97.6 As Directed IV EDNOW ONE Rx#:[id number] Ns 1,000 ml @ 150 mls/hr 776 IV CONT FLY Rx#: [id number] POTASSIUM Cl (KCl) 50 ml 50 @ 50 mls/hr IV ONCE ONE Rx#:[id number] Output: Urine (ml) 1881 600 Catheter 1481 600 Other: Weight 64.093 kg Number of Voids Catheter 2 Toilet 2 Result Diagrams: 08/25/17 05:25 08/25/17 05:25 Cardiac Labs: Cardiac Lab Results (72 Hrs) 08/23/17 08/23/17 21:15 15:05 Troponin I 3.870 H 3.990 H Telemetry: reviewed SR/ST with PVCs Echocardiogram: EF 35, mild MR - Physical Exam Constitutional: no apparent distress Eyes: anicteric sclera Ears, Nose, Mouth, Throat: moist mucous membranes Cardiovascular: regular rate and rhythm Respiratory: no wheezes, reduced air movement, inspiratory crackles Gastrointestinal: normoactive bowel sounds, no tenderness Genitourinary: no suprapubic tenderness Skin: no rashes, no abrasions, no edema Neurologic: AAOx3 Psychiatric: cooperative, interactive ICD10 Worksheet Patient Problems: Problems Problem Status Onset Cardiogenic shock Acute Cardiomyopathy Acute Chest pain Acute Cocaine abuse Acute Elevated troponin Acute Pneumonia Acute Tachycardia Acute ROQUE (acute kidney injury) Acute Acute systolic congestive heart failure Acute NSTEMI (non-ST elevated myocardial infarction) Acute
[2017-08-25] MEDS: ENOXAPARIN 40 MG/0.4 ML SYR SC SCH (11:55)
[2017-08-25] MEDS: LORazepam 2 MG/ML INJ IVP PRN (20:31)
[2017-08-25 22:08] LABS: POTASSIUM 3.4 mEq/L (3.5-5.2)
[2017-08-26] MEDS: LORazepam 2 MG/ML INJ IVP PRN (04:28)
[2017-08-26 04:30] VITALS: PULSE 68
[2017-08-26 04:47] LABS: % IMMATURE GRANULYOCYTES 0.3 % (0.0-1.1); ABSOLUTE IMMATURE GRANULOCYTES 0.03 10^3/uL (0.00-0.10); ADD DIFF? NO; ADD MORPH? NO; ADD SCAN? NO; ATYPICAL LYMPHOCYTE FLAG 10 (0-99); FRAGMENT RBC FLAG 0 (0-99); HEMATOCRIT 34.4 % (38.0-47.0); HEMOGLOBIN 11.5 g/dL (12.6-16.3); LEFT SHIFT FLG 0 (0-99); LIPEMIA HEMOLYSIS FLAG 80 (0-99); MEAN CELL HEMOGLOBIN 32.3 pg (27.9-34.1); MEAN CELL HEMOGLOBIN CONCENTR. 33.4 g/dL (32.4-36.7); MEAN CELL VOLUME 96.6 fL (81.5-99.8); MEAN PLATELET VOLUME 11.2 fL (8.7-11.7); PLATELET CLUMPS FLAG 0 (0-99); PLATELET COUNT 226 10^3/uL (150-400); RED BLOOD CELL COUNT 3.56 10^6/uL (4.18-5.33); RED CELL DISTRIBUTION WIDTH 12.6 % (11.5-15.2)
[2017-08-26 04:50] LABS: ANION GAP 8 mEq/L (8-16); CALCIUM 8.6 mg/dL (8.5-10.4); CARBON DIOXIDE 22 mEq/l (22-31); CHLORIDE 110 mEq/L (97-110); CREATININE 0.7 mg/dL (0.6-1.0); GLOMERULAR FILTRATION RATE > 60; GLUCOSE 85 mg/dL (70-100); MAGNESIUM 1.9 mg/dL (1.6-2.3); POTASSIUM 3.6 mEq/L (3.5-5.2); SODIUM 140 mEq/L (134-144)
[2017-08-26] MEDS ORDERED: POTASSIUM CL 10 MEQ TAB PO ONE (06:56)
[2017-08-26 07:05] VITALS: RESP 16; TEMP 98.6; O2SAT 93
[2017-08-26] MEDS: ASPIRIN 81 MG CHEWABLE TAB PO SCH (09:28)
[2017-08-26] MEDS: LISINOPRIL 5 MG TAB PO SCH (09:28)
[2017-08-26] MEDS: ENOXAPARIN 40 MG/0.4 ML SYR SC SCH (09:30)
[2017-08-26 09:33] VITALS: BP 117/57
--- NOTE | 2017-08-26 10:53 | PDCARPN ---
Cardiology Progress Note Chief Complaint: CHF Assessment/Plan: Assessment: 52 yo F with PMH polysubstance abuse, cocaine-related MIs 2002, 2009, CHF with EF as low 10% and clean cors on C in 2014, NICM related polysubstance abuse p/ w CP, hypotension, elevated WBC. Admitted on 08/23/17. Had abstained from cocaine for a few months .With abstinence, EF improved to 65% in outpatient setting (07/01). 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 Echo showed LVEF dropped to 35%, Utox positive for cocaine and THC, Troponin positive, and RLL pna on CXR. #. Hypotension: cardiogenic plus possibly septic. Dopa now weaned and restarted on Lisinopril Has been on Coreg in past and stopped in June due to exercise intolerance and normalization of EF Will hold BB for now #. NICM with EF 35% on this admission: minimal crackles L base mild dyspnea on ambulation D/C with PO lasix and Lisinopril #. Polysubstance abuse: working with CM on cessation strategies #. Elevated troponins: likely related to cocaine with peak Tn 3.99 #. possible pna: per hospital medicine Plan: OK to d/c on PO lasix 08/26/17 10:51 Subjective: Minimal dyspnea. Reviewed/Discussed With: hospitalist Objective: Vital Signs (8 Hrs) Temp Pulse Resp BP Pulse Ox 08/26/17 09:28 117/57 L 08/26/17 07:04 98.6 F 68 16 117/58 L 93 08/26/17 04:00 98.2 F 68 18 118/53 L 94 Intake/Output (24 Hrs) 08/25/17 08/26/17 08/27/17 05:59 05:59 05:59 Intake Total 972.4 400 Output Total 600 Balance 372.4 400 Intake: Oral (ml) 900 400 IV Infused (ml) 72.4 DOPamine/DEXTROSE 250 ml 22.4 @ Titrate IV CONT FLY Rx# :[id number] POTASSIUM Cl (KCl) 50 ml 50 @ 50 mls/hr IV ONCE ONE Rx#:[id number] Output: Urine (ml) 600 Catheter 600 Other: Weight 65.408 kg Intake Quantity Yes Sufficient Number of Voids Catheter 2 Toilet 2 2 Result Diagrams: 08/26/17 04:18 10/12/17 04:18 Cardiac Labs: Cardiac Lab Results (72 Hrs) 08/23/17 08/23/17 21:15 15:05 Troponin I 3.870 H 3.990 H Telemetry: reviewed SR - Physical Exam Constitutional: no apparent distress Eyes: anicteric sclera Cardiovascular: regular rate and rhythm, no murmurs Respiratory: clear to auscultate bilat, inspiratory crackles (L base) Skin: warm, no edema Neurologic: AAOx3 Psychiatric: cooperative, interactive ICD10 Worksheet Patient Problems: Problems Problem Status Onset Cardiogenic shock Acute Cardiomyopathy Acute Chest pain Acute Cocaine abuse Acute Elevated troponin Acute Pneumonia Acute Tachycardia Acute ROQUE (acute kidney injury) Acute Acute systolic congestive heart failure Acute NSTEMI (non-ST elevated myocardial infarction) Acute
--- NOTE | 2017-08-26 11:07 | ASMTCMCOM ---
CM Note CM Note Notes: CM spoke w/ ROSETTA Puga regarding POC. Pt is being discharged today. CM met w/ pt in hopes to provide relapse prevention resources. Pt reports that she is well connected in the community. Pt reports that she is in the process of getting set up w/ a [facility]. Pt reports that she goes to AA and does 12 steps. CM informed pt of the website, psychology today to find a therapist. CM available for changes. Date Signed: 08/26/2017 11:07 AM Electronically Signed By:DHEERAJ Banuelos
--- NOTE | 2017-08-26 14:40 | ASDISCHSUM ---
Discharge Information Plan Status:Home with No Needs Medically Cleared to Leave:08/26/2017 Discharge Date:08/26/2017 11:21 AM CM D/C Disposition: ADT D/C Disposition:Home, Routine, Self-Care Projected Discharge Date:08/26/2017 12:00 AM Transportation at D/C: Discharge Delay Reason: Follow-Up Date:08/26/2017 12:00 AM Discharge Slot: Final Diagnosis: Placement Information Patient Contact Information Contact Name:SHEILA Relationship:Other Address:[address] [place] [address] [address] City:[place] Alternate Phone: [facility]/Zip Code:[place] [address] Email: Financial Information Financial Class: Primary Plan Desc:[employer] [place] IP Primary Plan Number:[id number] Secondary Plan Desc: Secondary Plan Number: Assessment Information [facility] CM Progress Note CM Note CM Note Notes: 52 year old female admitted for chest pain, hypotension, sepsis, RLL PNA. Patient has a hx of cocaine induced cardiomyopathy, polysubstance abuse, OK, EF=10%. CM to follow for discharge needs. Date Signed: 08/24/2017 09:42 AM Electronically Signed By:Deysi Soliz LCSW [facility] CM Progress Note CM Note CM Note Notes: CM spoke w/ ROSETTA Puga regarding POC. Pt is being discharged today. CM met w/ pt in hopes to provide relapse prevention resources. Pt reports that she is well connected in the community. Pt reports that she is in the process of getting set up w/ a [facility]. Pt reports that she goes to and does 12 steps. CM informed pt of the website, psychology today to find a therapist. CM available for changes. Date Signed: 08/26/2017 11:07 AM Electronically Signed By:DHEERAJ Banuelos Intervention Information
--- NOTE | 2017-08-27 05:20 | GDS ---
[f rep st] DISCHARGE SUMMARY DISCHARGE DIAGNOSES: 1. Cocaine-induced cardiomyopathy. 2. Hypotension secondary to cardiogenic shock, requiring dopamine, resolved. 3. Elevated troponin secondary to cocaine use. 4. Cocaine abuse. 5. Possible community-acquired pneumonia. CONSULTANTS: 1. Dr. Marshall Choi, Cardiology. 2. Dr. Peyman Schwartz, Pulmonology. HISTORY FOR DETAILS: Please see the history and physical dated August 23, 2017. 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 She had maintained sobriety from cocaine and had stopped taking her heart failure regimen of beta alex, JORGE inhibitor, and aspirin. However, she had a re lapse and began using somewhat more regularly. Upon arrival to the emergency department, she was fou nd to be hypotensive with a blood pressure as low as 60, requiring dopamine. In addition, she was ta chycardic with a leukocytosis and sepsis was considered. HOSPITAL COURSE: She was treated for possible right lower lobe pneumonia with ceftriaxone and comple nini 1.5 g of azithromycin. She was weaned off dopamine. Echocardiogram showed an ejection fraction of 45%. As above, her EF has been as low as 10% and had normalized when she was off cocaine, but aga in has decreased to 45% in the setting of resumption of cocaine use. Her blood pressure did improve off pressors, and we were able to start her on low-dose lisinopril. At this point, I do not think gabe ventura is a good candidate for beta alex until it is clear that she is not going to continue to use jomar lynne. Her elevated troponin was noted and thought unlikely to be secondary to an acute coronary synd jose. She had a clear coronary angiogram in 2015. We had frequent conversations about abstinence. Patient has a good recovery plan and acknowledges that she needs to end her friendship with her cocai ne dealer. She shows good insight and is committed to recovery and follow up with her medical care. She was also treated with Lasix as her BNP was noted to be as high as 11,000. It was considered if this right lower lobe chest x-ray finding may have represented some fluid overload. Therefore, she w ill be treated with low-dose Lasix for just one more week and have close followup with her cardiologi st. DISPOSITION: Patient is discharged home in stable condition. FOLLOWUP: 1. Dr. Tung Stevens, Cardiology. 2. Also a basic metabolic panel to check her electrolytes and creatinine. DISCHARGE MEDICATIONS: Please see [facility] for completed outpatient medication list. New medications on discharge include: 1. Lasix 20 mg p.o. daily, #7, no refills. 2. Potassium 20 mEq daily, #7, no refills. She will continue her outpatient prescriptions for aspirin 81 mg p.o. daily and lisinopril 5 mg p.o. daily. As above, beta-blockers deferred at this time. This can be reconsidered at her outpatient cardiology followup. /[id number]/MODL
== END 2017-08-26 11:21 | disposition home or self-care (01) | DRG 314 ==
LOC: EDUNIT# → F2N 09:07 → F2W 08-25 10:22
PROVIDERS: ADMIT Internal Medicine; ATTEND Internal Medicine
PROC: 02HV33Z Insertion of Infusion Device into Superior Vena Cava, Percutaneous Approach (ICD-10-PCS; principal; 2017-08-23)
DX: I42.7 Cardiomyopathy due to drug and external agent (principal); T40.5X5A Adverse effect of cocaine, initial encounter; R57.0 Cardiogenic shock; F14.10 Cocaine abuse, uncomplicated; J18.9 Pneumonia, unspecified organism; E87.6 Hypokalemia; I50.22 Chronic systolic (congestive) heart failure; I25.2 Old myocardial infarction
CPT/HCPCS: 80305; J0456; J0696; J1265; J1644; J1650; J1940; J2060; J2405; J3010; J3475